=== PATIENT | female | born 1955 ===

== ENCOUNTER 2024-04-13 06:26 | Day surgery (SDC) | payer OTHER, SELFPAY ==
[2024-03-18 10:56] VITALS: BMI 23.6
[2024-03-18 11:29] LABS: Hematocrit 33.6 % (37.0-47.0); Hemoglobin 12.1 g/dL (12.0-16.0); Mean Corpuscular Volume 83.4 fL (81.0-99.0); Mean Platelet Volume 9.3 fL (7.4-10.4); Platelet Count 229 10^3/uL (130-400); Red Blood Cell Count 4.03 10^6/uL (4.20-5.40); Red Cell Dist. Width 12.7 % (11.5-14.5); White Blood Cell Count 5.3 10^3/uL (4.8-10.8)
[2024-03-18 12:04] LABS: ALT (SGPT) 31 U/L (0-35); AST (SGOT) 36 U/L (14-36); Albumin 4.4 g/dl (3.5-5.0); Alkaline Phosphatase 111 U/L (38-126); Blood Urea Nitrogen 20 mg/dl (7-17); Calcium 9.8 mg/dl (8.4-10.2); Carbon Dioxide 29 mmol/L (22-30); Chloride 101 mmol/L (98-107); Estimated Creatinine Clearance 61 ml/min; Glucose 109 mg/dl (70-99); Potassium 4.4 mmol/L (3.5-5.1); Sodium 142 mmol/L (135-145); Total Bilirubin 0.2 mg/dl (0.2-1.3); Total Protein 6.7 g/dl (6.3-8.2); eGFR > 60.00
[2024-03-18 12:55] LABS: Glycohemoglobin (HgbA1c) 5.2 % (4.0-5.6)
--- NOTE | 2024-04-01 13:26 | VNURNOTE ---
Patient is scheduled for an elective L THR on 04/13/24- She is a same day patient with Dr Elias. Spoke with patient prior to surgery. Introduced role of [facility] Liaison. Patient reports that She lives with spouse in a MULTI story home.
There are 2 steps to enter and a flight of 16 steps to the second floor.
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 She has DME from previous hip surgery and confirms has a rolling walker.
PCP is Dr Jesús Toribio
Discussed [facility] joint protocol and post surgical plans.
Reviewed that she will have [facility] services initially and will then start outpatient PT.
Patient selects [facility]N for home care needs and will go to [facility] for outpatient PT. Scheduled for 04/16.
Patient is in agreement with plan and states that her spouse will be home with her. Advised to bring RW with him day of surgery.
Referral placed in [facility].
Plan: [facility] per [facility] joint protocol then outpt PT on 04/16
[2024-04-08 11:17] VITALS: BMI 23.6
[2024-04-13] VITALS (15 sets, daily range): BP systolic 112–160; BP diastolic 54–86; PULSE 62; O2SAT 95
[2024-04-13] MEDS: TYLENOL 650 MG PO (08:02)
[2024-04-13] MEDS: NEURONTIN 200 MG PO (12:20)
[2024-04-13] MEDS: ROXICODONE 5 MG PO (13:04)
[2024-04-13] MEDS: ANCEF 5 IV (13:32)
== END 2024-04-13 14:26 | disposition home health service (06) ==
LOC: SDS 06:26
PROVIDERS: ATTENDING PHYSICIAN Specialist; FAMILY PHYSICIAN Family Medicine; REFERRING PHYSICIAN Internal Medicine
PROC: 0SRB0JZ Replacement of Left Hip Joint with Synthetic Substitute, Open Approach (ICD-10-PCS; 2024-04-13)
DX: M16.12 Unilateral primary osteoarthritis, left hip (principal); M81.0 Age-related osteoporosis without current pathological fracture; Z88.6 Allergy status to analgesic agent
CPT/HCPCS: 27130; 36415; 73502; 80053; 83036; 85027; 87070; 97116; 97162; C1713; C1776